=== PATIENT | female | born 1950 | race Caucasian/White ===

== ENCOUNTER → 2017-08-09 | Outpatient (CLI) | payer BC | END | disposition home or self-care (01) | LOC: C.RDSM 10:42 | PROVIDERS: ATTEND Orthopaedic Surgery | DX: M25.551 Pain in right hip (principal) ==

== ENCOUNTER → 2017-10-19 | Outpatient (CLI) | payer BC ==
--- NOTE | 2017-10-19 15:02 | DIAGNOSTIC IMAGING REPORT ---
RIGHT HAND 3 VIEWS CLINICAL HISTORY: Inflammatory polyarthritis. Bilateral hand pain. FINDINGS: 3 views of the right hand are obtained. No prior studies are available for comparison at the time of dictation. The skeletal structures are osteopenic. No fracture is seen. Minimal osteoarthritic change is seen involving the interphalangeal joints, distal greater than and proximal. No erosive disease is identified. The overlying soft tissues are within normal limits. IMPRESSION: Osteopenia and mild arthritic change as above. No acute osseous abnormality is seen. Electronically signed by: Huber Stevenson M.D. 10/19/2017 3:01 PM Dictated Date/Time: 10/19/2017 3:00 PM
--- NOTE | 2017-10-19 15:06 | DIAGNOSTIC IMAGING REPORT ---
L HAND MIN 3 VIEWS ROUTINE CLINICAL HISTORY: Bilateral hand pain. Generalized osteoarthritis. COMPARISON: None FINDINGS: Note is made of a 9 mm lucent expansile lesion within the distal phalanx of the left fifth finger. No fracture or suspicious lesion is identified on this exam and there is joint space narrowing with osteophytosis within multiple articulations of the left hand, most pronounced within the distal interphalangeal joints. Note is made of a well-corticated 8 mm ossicle adjacent to the ulnar styloid. IMPRESSION: 1. No acute fracture. 2. 9 mm expansile lucent lesion within the distal phalanx of the left fifth finger which is likely benign. An enchondroma or bone cyst is favored. 3. Mild to moderate osteoarthritis within multiple articulations of the left hip. 4. No radiographic evidence for erosive/inflammatory arthropathy. 5. 8 mm ossicle adjacent to the ulnar styloid which is chronic and may reflect remote trauma. Electronically signed by: Dean Ragland M.D. 10/19/2017 3:05 PM Dictated Date/Time: 10/19/2017 3:03 PM
[2017-10-19 15:51] LABS: TRANSFERRIN 270 mg/dl (200-360)
== END | disposition home or self-care (01) ==
LOC: C.RAD1850 14:29
PROVIDERS: ATTEND Internal Medicine Rheumatology
DX: K21.9 Gastro-esophageal reflux disease without esophagitis (principal); M06.4 Inflammatory polyarthropathy; M15.9 Polyosteoarthritis, unspecified; M87.059 Idiopathic aseptic necrosis of unspecified femur; Z79.1 Long term (current) use of non-steroidal anti-inflammatories (NSAID)

== ENCOUNTER → 2017-11-07 | Outpatient (CLI) | payer MEDICARE, OTHER ==
[~2017-11-07] MED LIST: ALPR-411 PO; ASPI81TA28 PO; BILB40CA4 PO; CEPH500C PO; CRAN405C3 PO; DICY10CA55 PO; GLC/500 PO; GLUC1CAP35 PO; MULT-506 PO; NXM/40 PO; OMEG10007 PO
--- NOTE | 2017-11-07 14:13 | DIAGNOSTIC IMAGING REPORT ---
PELVIS 1 OR 2 VIEWS CLINICAL HISTORY: Preop for right total hip arthroplasty. COMPARISON STUDY: Pelvis 08/09/2017. FINDINGS: Severe osteoarthritis within the right hip with [id number] articulation, subchondral sclerosis, and subchondral cystic change. This remains unchanged. No fracture or dislocation within the pelvis or hips. There is evidence for a prior left total hip arthroplasty. The hardware appears intact. No abnormal periprosthetic lucency. Pelvic phleboliths are noted. IMPRESSION: 1. Severe osteoarthritis within the right hip, unchanged. 2. Left total hip arthroplasty. No evidence for hardware complication. Electronically signed by: Darren Norman M.D. 11/07/2017 2:11 PM Dictated Date/Time: 11/07/2017 2:07 PM
== END | disposition home or self-care (01) ==
LOC: C.RDSM 14:00
PROVIDERS: ATTEND Physician Assistant
DX: Z01.818 Encounter for other preprocedural examination (principal); M16.11 Unilateral primary osteoarthritis, right hip; Z96.642 Presence of left artificial hip joint

== ENCOUNTER 2025-04-24 10:58 | Inpatient (IN) ==
--- NOTE | 2025-04-15 10:13 | Anesthesiology Consultation ---
Date of Service April 15, 2025 Assessment & Plan (1) Encounter for pre-operative examination: - Check BSG DOS - Infectious disease screening: Per assessment on 04/15/25- No known recent infectious disease contacts or current infectious disease symptoms. - Preop testing: Preop EKG done 04/11/25 notes SR with PACs in pattern of bigeminy; 78bpm. Per PAT RN phone interview 04/15/25, no cardiopulmonary limiting complaints and no SOB with flight of stairs. Reviewed with Dr. Pierda; no further cardiac evaluation and/or testing needed prior to given surgery from his perspective. - Acceptable risk for given surgery pending evaluation DOS. Chart Review Chart Review: Patient NOT seen in Pre Admission Testing History Surgery Operation Date: 04/24/25 12:20 Proposed Procedures p Laparoscopic Sigmoid Colon Resection, Possible Open - Mark Machuca, Height/Weight Height: 5 ft 6 in Weight: 70.307 kg Allergies Allergy/AdvReac Type Severity Reaction Status Date / Time adhesive tape Allergy Severe Severe Verified 04/15/25 10:10 skin rash, blisters nitrofurantoin Allergy Severe Bilateral Verified 04/15/25 10:10 [From Macrobid] hand swelling diltiazem AdvReac Severe Severe Verified 04/15/25 10:10 lower extremity edema lemus pepper AdvReac Intermediate Gastrointestinal Verified 04/15/25 09:29 Upset ciprofloxacin AdvReac Intermediate Ligament Verified 04/15/25 10:10 damage Medications Home Medications Medication Instructions Recorded Confirmed Last Taken esomeprazole magnesium 40 mg 40 mg PO QAM Heartburn 01/09/19 04/15/25 08/31/23 07:00 capsule,delayed release (Nexium) dapagliflozin propanediol 5 mg 10 mg PO HS 08/16/23 04/15/25 08/29/23 tablet (Farxiga) amoxicillin 500 mg tablet 2,000 mg PO UD PRN dental appts 08/21/23 04/15/25 07/27/23 dicyclomine 10 mg capsule 10 mg PO BID PRN 08/21/23 04/15/25 08/03/23 diarrhea/abdominal pain ibuprofen 200 mg tablet (Advil) 400 mg PO Q6H PRN Pain 08/21/23 04/15/25 08/25/23 aspirin 81 mg tablet,delayed 81 mg PO QAM 09/13/24 04/15/25 Unknown release conjugated estrogens 0.625 mg/gram 0.625 mg vaginal 2XWK 09/13/24 04/15/25 Unknown vaginal cream (Premarin) multivitamin 1 tab PO QAM 09/13/24 04/15/25 Unknown red yeast rice 600 mg tablet 600 mg PO QAM 09/13/24 04/15/25 Unknown metformin 500 mg tablet 500 mg PO HS 01/13/25 04/15/25 Unknown metformin 500 mg tablet,extended 1,000 mg PO QAM 01/13/25 04/15/25 Unknown release 24 hr Past Medical History Medical History Cholelithiasis Diabetes mellitus NIDDM GERD without esophagitis History of nephrolithiasis Per remote records, patient denies HLD (hyperlipidemia) Per remote records, patient denies HTN (hypertension) Per remote records, patient denies Neuropathy Osteoarthritis Polyarthralgia Rheumatoid arthritis Per remote records, patient denies Stricture of sigmoid colon Varicose vein of leg right Past Family History Family History Father Diabetes Heart disease Colorectal cancer Mother Heart disease Other No family history of adverse response to anesthesia Past Surgical History Surgical History H/O colonoscopy H/O dilation and curettage 2022 History of endoscopic sinus surgery History of total right hip arthroplasty Hx laparoscopic cholecystectomy (09/01/23) Laparoscopic Cholecystectomy Social History Smoking Status: Former smoker Do You Dip or Chew Tobacco: No Smoking End Date: quit "14 yrs ago" Hx Alcohol Use: Yes alcohol intake frequency: holidays/special occasions only Hx Substance Use: No substance use type: does not use Lab Results Anesthesia Preop Results Results Anesthesia Widget: WBC 12.30 K/ul (4.8-10.8) H 04/11/25 Hgb 12.4 g/dl (12.0-16.0) 04/11/25 Hct 39.2 % (37.0-47.0) 04/11/25 Plt 434 K/uL (130-400) H 04/11/25 Na 136 mmol/L (136-145) 04/11/25 K 4.1 mmol/L (3.5-5.1) 04/11/25 Cl 101 mmol/L (98-107) 04/11/25 CO2 27 mmol/L (21-32) 04/11/25 BUN 11 mg/dl (6-23) 04/11/25 Creat 0.55 mg/dl (0.6-1.2) L 04/11/25 Glucose Level 116 mg/dl (70-99(Fasting)) H 04/11/25 HA1c 7.5 % (4.5-5.6) H 04/11/25 Testing Electrocardiogram Date: 04/11/25 SR with PACs in pattern of bigeminy; "Otherwise normal ECG" Chest X-Ray Date: 04/11/25 FINDINGS: Heart size and pulmonary vasculature are normal. No effusion, consolidation, or pneumothorax. No gross free air seen under the diaphragm. IMPRESSION: No acute findings.
--- NOTE | 2025-04-24 07:12 | History & Physical Report ---
Date of Service April 24, 2025 Assessment & Plan (1) Stricture of sigmoid colon: Plan: I have given her options and discussed risk which include bleeding infection anastomotic leak or stricture injury to other organs such as bladder ureter bowel etc., DVT, PE, IA, CVA etc. Following our discussion I answered all the questions. We will proceed today with laparoscopic sigmoid colectomy. She agrees with the plan. (2) Family history of colon cancer: (3) DM hyperosmolarity type II: History of Present Illness Primary Care Provider: MD Ashlee Mcneill is here today for a laparoscopic sigmoid colectomy for sigmoid stricture. There has been no major changes to her health history since I had seen her last in the office Allergies Allergy/AdvReac Type Severity Reaction Status Date / Time adhesive tape Allergy Severe Severe Verified 04/24/25 10:53 skin rash, blisters nitrofurantoin Allergy Severe Bilateral Verified 04/24/25 10:53 [From Macrobid] hand swelling diltiazem AdvReac Severe Severe Verified 04/24/25 10:53 lower extremity edema lemus pepper AdvReac Intermediate Gastrointestinal Verified 04/24/25 10:53 Upset ciprofloxacin AdvReac Intermediate Ligament Verified 04/24/25 10:53 damage Home Medications Medication Instructions Recorded Confirmed Type esomeprazole magnesium 40 mg 40 mg PO QAM Heartburn 01/09/19 04/24/25 History capsule,delayed release (Nexium) dapagliflozin propanediol 5 mg 10 mg PO HS 08/16/23 04/24/25 History tablet (Farxiga) amoxicillin 500 mg tablet 2,000 mg PO UD PRN dental appts 08/21/23 04/24/25 History dicyclomine 10 mg capsule 10 mg PO BID PRN 08/21/23 04/24/25 History diarrhea/abdominal pain ibuprofen 200 mg tablet (Advil) 400 mg PO Q6H PRN Pain 08/21/23 04/24/25 History aspirin 81 mg tablet,delayed 81 mg PO QAM 09/13/24 04/24/25 History release conjugated estrogens 0.625 mg/gram 0.625 mg vaginal 2XWK 09/13/24 04/24/25 History vaginal cream (Premarin) multivitamin 1 tab PO QAM 09/13/24 04/24/25 History red yeast rice 600 mg tablet 600 mg PO QAM 09/13/24 04/24/25 History metformin 500 mg tablet 500 mg PO HS 01/13/25 04/24/25 History metformin 500 mg tablet,extended 1,000 mg PO QAM 01/13/25 04/24/25 History release 24 hr Past Med/Surg History Problem List Family history of colon cancer Stricture of sigmoid colon Encounter for pre-operative examination JILLIAN (generalized anxiety disorder) Per remoce records, patient denies DM hyperosmolarity type II Medical History Cholelithiasis Diabetes mellitus NIDDM GERD without esophagitis History of nephrolithiasis Per remote records, patient denies HLD (hyperlipidemia) Per remote records, patient denies HTN (hypertension) Per remote records, patient denies Neuropathy Osteoarthritis Polyarthralgia Rheumatoid arthritis Per remote records, patient denies Stricture of sigmoid colon Varicose vein of leg right Surgical History H/O colonoscopy H/O dilation and curettage 2022 History of endoscopic sinus surgery History of total right hip arthroplasty Hx laparoscopic cholecystectomy (09/01/23) Laparoscopic Cholecystectomy Family History Father Diabetes Heart disease Colorectal cancer Mother Heart disease Other No family history of adverse response to anesthesia Social History Smoking Status: Former smoker packs per day: 0.5; Smoking End Date: quit "14 yrs ago"; Second Hand Exposure: No; Do You Dip or Chew Tobacco: No; Tobacco Cessation Education Requested by Patient: No Hx Alcohol Use: Yes Hx Substance Use: No Preferred Language: Belarusian Communication Ability: Effective Visual Impairment: No Limitations Antenna Rigger Required: No Beliefs That Will Affect Care: None marital status: Current Living Situation: Spouse How many Children do You have: 0 Other Information That Helps Us Care for You: No Feels Safe at Home: Yes Safety Concerns: Feels Safe At This Time Diet: diabetic during the past year weight has: remained stable Assistive Devices: Glasses Review of Systems All systems reviewed & are unremarkable except as noted in HPI & below Physical Exam Constitutional: WD/WN, vitals as above no acute distress and not ill appearing Eyes: PERRL, conjunctivae normal, anicteric sclerae EOM intact bilaterally ENMT: external ear and nose normal, oropharynx normal Ears: no hearing impairment Neck: trachea midline, no thyromegaly Respiratory: normal respiratory effort; no respiratory distress and does not use accessory muscles Cardiovascular: Rate/Rhythm: regular rate and regular rhythm Gastrointestinal (Abdomen): normal bowel sounds, soft, nontender, no hepatosplenomegaly Skin: no rashes, warm and dry Psychiatric: Orientation: alert, oriented x 3 and cooperative
[2025-04-24] MEDS: LR 15ML/HR IV SCH (11:30)
[2025-04-24] MEDS: HEPARIN SOD 5,000 UNIT/0.5 ML VIAL SC SCH (11:30)
[2025-04-24] MEDS ORDERED: ATROPINE SULFATE 0.1 MG/ML 10ML SYR IV PRN (11:56)
[2025-04-24] MEDS ORDERED: HYDROmorphone INJ 1 MG/ML SYRINGE IV PRN (11:56)
[2025-04-24] MEDS ORDERED: ONDANSETRON INJ 2 MG/ML 2 ML VIAL IV PRN ×2 (11:56→21:16)
[2025-04-24] MEDS ORDERED: PROMETHAZINE HCL 6.25 MG in SODIUM CHLORIDE 0.9% 50 ML IV PRN (11:56)
[2025-04-24] MEDS ORDERED: PROPOFOL IV EMULSION 10 MG/ML 20 ML VIAL IV ONE (12:04)
[2025-04-24] MEDS ORDERED: ROCURONIUM BROMIDE 10 MG/ML 5 ML VIAL IV ONE ×3 (12:04→16:50)
[2025-04-24] MEDS ORDERED: ONDANSETRON INJ 2 MG/ML 2 ML VIAL ONE (12:04)
[2025-04-24] MEDS ORDERED: MIDAZOLAM HCL 1 MG/ML 2ML VIAL ONE (12:08)
[2025-04-24] MEDS ORDERED: PHENYLEPHRINE 100MCG/ML 5ML SYR ONE (14:49)
[2025-04-24] MEDS ORDERED: METHYLENE BLUE 0.5% 10 ML VIAL ONE (15:38)
[2025-04-24] MEDS ORDERED: ALBUMIN HUMAN 5% 12.5 GM/250 ML VIAL IV ONE (16:49)
[2025-04-24] MEDS ORDERED: ceFAZolin 330 MG/ML 1 GM VIAL ONE (17:30)
[2025-04-24] MEDS ORDERED: HYDROmorphone INJ 2 MG/ML SYR/VIAL ONE (17:58)
--- NOTE | 2025-04-24 18:12 | Operative Report ---
PG Post Operative Report Pre & Post Diagnosis Operation Date: 04/24/25 12:05 Pre-Op Diagnosis: bladder laceration Post-Op Diagnosis: bladder laceration I identified the patient and participated in the time-out.: No Procedure Operation Date: 04/24/25 12:05 Actual Procedures p Laparoscopic, converted to open Sigmoid Colon Resection(Not Applicable) - Mark Machuca, DO s Cystoscopy, ureteral catheterization, repair of bladder laceration(Not Applicable) - Suleman Ma MD Surgeon Suleman Ma MD Parachute/Combatant Diver Officer none Estimated Blood Loss 0 Findings See Below Sigmoid colon fused to the dome and posterior wall of the bladder. These were dissected apart sharply. Cystotomy had been made near the dome of the bladder, this was inspected and repaired in the 2 layer closure. Cystoscopy identified efflux from bilateral ureters, left ureteral catheter was left in place to allow tactile sensation for the duration of the procedure, will be removed at conclusion of procedure. Vazquez catheter will remain in place. Specimens None Drains 5 Guyanese open-ended catheter in the left ureter, plan to remove at the end of surgery 16 Guyanese Vazquez catheter per urethra, 10 cc in balloon Anesthesia Type General Complications none Disposition Accompanied Patient To Recovery: No Indications This is a 74-year-old female who was brought to the OR by general surgery for sigmoid colon resection. Intraoperatively she was found to have significant adhesion of her sigmoid colon to the dome and posterior wall of the bladder. During dissection a cystotomy was created. Urology was consulted intraoperatively for assistance with dissection and repair of bladder laceration. Description of Procedure Upon entry to the OR, patient was already under anesthesia with an abdominal incision and the lower abdomen and pelvis exposed. On inspection there appeared to be a 2 to 3 cm cystotomy near the dome of the bladder and the sigmoid colon was significantly firm and fused to the dome and posterior wall of the bladder. There was no obvious plane for dissection between these 2 structures. There was a Vazquez catheter in the bladder and the balloon could be palpated near the bladder neck. Bladder seemed to be fairly capacious. Prior to repairing the cystotomy, we elected to complete the dissection of the sigmoid colon away from the bladder. While palpating the inside of the bladder through the cystotomy to determine the approximate edge, we used blunt and sharp dissection to free up the colon from the bladder. At 1 point dissection entered into the sigmoid that was planning to be resected, which provided a useful landmark. The line of dissection was then adjusted to free up the remaining colon off of the bladder. Once the colon was freed up, I turned my attention to the bladder laceration. The mucosal edges were identified and inspected. These appeared to be healthy edges of tissue. The mucosal layer was reapproximated using 4-0 Vicryl in a running suture. I then closed the muscularis layer using a running 3-0 Vicryl suture. The bladder was leak tested with 120 mL of normal saline and no leaks were identified. Cystoscopy was then performed to inspect the anterior of the bladder and interrogate the ureters. The ureteral orifices were somewhat further at the posterior wall of the bladder than expected, but there was drainage of urine from both sides. Due to denser scar tissue on the left side in the pelvis, Dr. Machuca requested that I leave a 5 Guyanese open-ended catheter to provide a palpable landmark for his dissection. 5 Guyanese open-ended catheter was advanced with minimal resistance, approximately 25 cm up toward the left kidney. Leaving the open-ended catheter in place, the cystoscope was then withdrawn. A 16 Guyanese Vazquez catheter was placed per urethra and the balloon inflated with 10 mL of normal saline. 5 Guyanese open-ended catheter was threaded by the adapter into the Vazquez bag as well and secured using a 0 silk suture to the catheter. At this point I concluded my portion of the case and left Dr. Machuca to complete the colon resection. We will plan to maintain the Vazquez catheter for approximately 2 weeks. The 5 Guyanese open-ended catheter can be removed at the end of surgery this evening. I attest to the content of the Intraoperative Record and any orders documented therein. Any exceptions are noted below.
[2025-04-24] MEDS ORDERED: SUGAMMADEX SODIUM 200 MG/2 ML VIAL IV ONE (19:21)
[2025-04-24] MEDS: BUPIVACAINE/EPINEPHRINE 0.5% MPF 1:200,000 30 ML VIAL ONE (19:37)
--- NOTE | 2025-04-24 20:07 | Operative Report ---
PG Post Operative Report Pre & Post Diagnosis Operation Date: 04/24/25 12:05 Pre-Op Diagnosis: Stricture of Sigmoid Colon Post-Op Diagnosis: Stricture of Sigmoid Colon; badder laceration I identified the patient and participated in the time-out.: No Procedure Operation Date: 04/24/25 12:05 Actual Procedures p Laparoscopic, converted to open Low Anterior Resection(Not Applicable) - ; please use difficulty modifierMatthedarci Machuca DO s Cystoscopy, ureteral catheterization, repair of bladder laceration(Not Applicable) - Suleman Ma MD Surgeon Mark Machuca DO intra-op consult/urology: International Travel Consultant Betsy Tim pa-c; Crescencio Aggarwal pa-c Estimated Blood Loss 200 Findings See Below Specimens rectosigmoid colon Anesthesia Type General Complications none bladder laceration Disposition Accompanied Patient To Recovery: No Description of Procedure After informed consent was obtained the patient was taken to the operating room and placed in supine position. After successful intubation the patient was placed in a low lithotomy position. A Vazquez catheter was placed sterilely. The abdomen and perineum were then sterilely prepped and draped in usual fashion. I began with a supraumbilical incision. I carried this down through the soft tissue using cautery. Anterior fascia was opened using cautery and two #0 Vicryl stay sutures were placed. Blunt finger penetration was performed. A 12 mm Hayes trocar was placed and the abdomen was insufflated to 18 mmHg. The laparoscope was inserted and the abdomen examined 360 degrees. A right lower quadrant 12 mm port and a right mid abdominal 5 mm port were placed under direct vision. The patient was placed in a Trendelenburg position. I began by examining the sigmoid colon. Almost immediately I realized I would have to convert to an open procedure. The area of abnormal rectosigmoid was extremely adhesed and completely to the left pelvic sidewall and eventually we would come to realize the urinary bladder. There is no way to even remotely manipulate the disease portion of colon. At this point we removed all the trocars and desufflated the abdomen. I made a midline incision from above the umbilicus down the pubic symphysis. Once in the abdomen we did use a Bookwalter retractor to help with exposure. I began by trying to take down the white line of Toldt on the left colon. I tried to use blunt finger fractionation but this was simply impossible. The colon itself was extremely hard and non-malleable. I had to use very hard finger fractionation as well as some sharp lysis to get the colon off of the left abdominal and pelvic sidewall. This was a very tedious portion of the surgery. The surgery from start to finish was extremely difficult anatomically. At this point I decided to transect the left colon proximal to the stricture using a GAGAN purple cartridge linear stapler. This allowed me to use the LigaSure device to come down along the mesentery of the diseased bowel. Again we used tedious primarily finger fractionation with small amounts of sharp lysis. As I came over the pelvic brim and tried to free the colon from surrounding tissue my finger inadvertently caused an injury to the urinary bladder. Essentially the colon had fistulized to the bladder and the plane was unrecognizable. You could not differentiate bladder from sigmoid colon. At this point I called Dr. Ma into the room. He graciously came in and we had to sharply divide the urinary bladder from the sigmoid colon. Again this took quite some time. Please see his dictation regarding this part of the procedure as well as the repair of the bladder ,cystoscopy and left ureter stent placement. Once his portion of the procedure was completed we then continued to finger fractionate colon down along the left side. I was able to more aggressively do this now that we had a ureteral stent in place. At 1 point I scrubbed out of the case and performed a sigmoidoscopy. I ensured that the colonoscope passed up to the area of inflamed bowel and that there was not a second distal stricture. We were able to identify the tattoo rebekah placed previously by gastroenterology. Once I had this freed up it was going to be clear that we were not going to be able to staple off the rectosigmoid as it was too thick and our angle was too poor. Therefore I placed a bowel clamp on the rectum as well as the sigmoid and sharply divided the colon distal to the stricture. This was sent to pathology. Once we did this this allowed us to mobilize the mesentery of the rectosigmoid and free up the peritoneal reflection. Once we did that I was then able to safely use a GAGAN black cartridge stapler to transect the rectosigmoid and passed this additional portion of colon to pathology as well. Throughout the procedure we did change our gloves intermittently as well as our gowns. There was never any spillage. Next I freed up the left colon up to the splenic flexure. Next we opened the proximal stapled end of the colon. I used 2-0 silk to hand sew a pursestring. We then used the sizers to estimate the lumen size to be 28 mm. The anvil of a 28 mm stapler was placed and the pursestring used to secure it. After freeing up the splenic flexure the anvil laid nicely over the pelvic brim. Next we brought in the handle of the EEA stapler. We brought out the spike anterior to the staple line. We connected the anvil to the handle secured them together and fired it creating a circular anastomosis. Next I thoroughly irrigated the pelvis. The anastomosis looked good and was nonischemic. I bowel clamped the left colon and submerged the anastomosis in water. We used a rigid sigmoidoscope to inflate the anastomosis and there was no evidence of any anastomotic leak. We performed this maneuver twice with the same result. There was adequate hemostasis. We thoroughly irrigated the entire abdomen. 10 flat Leland-Melendez drain was placed into the pelvis and brought out through one of the right lower quadrant trocar sites. It was secured to the skin using 2-0 silk. The fascia was closed using 0 PDS in running fashion. Soft tissue was irrigated and skin was closed over skin delma. A silver dressing was applied as well as an abdominal binder. The ureteral stent was removed but the Vazquez was left in place. The patient was awakened extubated and transferred to recovery in stable condition. My physician certified anesthesiologist assistant was present through the entire case. My second physician certified anesthesiologist assistant also scrubbed in for the second half of the case. They were instrumental in all aspects including accessing the abdomen, exposure throughout the procedure, assisting with the anastomosis, assisting Dr. Ma with his portion of the procedure, wound closure and dressing placement. Again this was extremely difficult from being the end please use modifier 22. I attest to the content of the Intraoperative Record and any orders documented therein. Any exceptions are noted below.
--- NOTE | 2025-04-24 20:34 | Anesthesiology Progress Note ---
Date of Service April 24, 2025 Anesthesia Post Procedure Vital Signs Vital Signs: Temp Pulse Pulse Resp BP Pulse Ox O2 Del Method 04/24/25 20:25 98 H 18 138/75 95 Nasal Cannula 04/24/25 20:15 101 H 14 133/75 97 Nasal Cannula 04/24/25 20:05 97 H 18 131/71 98 Oxymask 04/24/25 19:54 36 C L 100 H 12 144/71 H 98 Oxymask 04/24/25 10:50 36.6 C 78 20 139/71 97 Room Air O2 Flow Rate 04/24/25 20:25 2 04/24/25 20:15 2 04/24/25 20:05 3 04/24/25 19:54 6 04/24/25 10:50 Transfer of Care Handoff Completed per policy Notes Mental Status: alert / awake / arousable Patient Amnestic to Procedure: Yes Nausea / Vomiting: adequately controlled Pain: adequately controlled Airway Patency, RR, SpO2: stable & adequate BP & HR: stable & adequate Hydration State: stable & adequate Anesthetic Complications: no major complications apparent
[2025-04-24] MEDS: PIPERACILLIN/TAZOBACTAM 4.5 GM/100 ML BAG IV ONE (21:37)
[2025-04-24] MEDS: SODIUM CHLORIDE 0.9% 1,000 ML IV SCH (21:38)
[2025-04-24] MEDS: HYDROmorphone INJ 0.5 MG/0.5 ML SYR IV PRN (22:01)
--- NOTE | 2025-04-24 22:44 | Hospitalist Consultation ---
Date of Consultation April 24, 2025 Assessment & Plan (1) T2DM (type 2 diabetes mellitus): (2) Stricture of sigmoid colon: (3) HLD (hyperlipidemia): (4) Rheumatoid arthritis: (5) Polyarthralgia: Plan #T2DM - Seen post-op, medically stable, pain control medications per primary team - Last HgbA1C 04/11: 7.5 - POC glucose from today (04/24): 229 - Hold home medications Farxiga and metformin - Start sliding scale insulin - Goal glucose 110-150s, CF 35, CR 11 - 6 U BID Lantus - ACHS glucose checks #GERD - Started IV Protonix 40mg daily - Switch to home oral nexium upon discharge #Polyarthralgias - Monitor symptoms and address as needed #HLD - Resume red yeast rice upon discharge Supervising Physician Co-Signing Physician Notes Attending addendum: I have physically seen this patient, have supervised the medical residents activities, and agree with the H&P unless as otherwise noted. Assessment and Plan: The patient is a 74-year-old female with a past medical history including diabetes mellitus type II, JILLIAN, and GERD without esophagitis. She underwent laparoscopic surgery converted to open low anterior resection of sigmoid stricture, and cystoscopy ureteral catheterization and repair of bladder laceration earlier in the day today on 04/24/2025. Seen postoperatively she is medically stable Pain and perisurgery medications per primary team. Reason for consult: Postoperative medical management, attention diabetes mellitus. Diabetes mellitus type 2- Last hemoglobin A1c on 04/11 was 7.5 POC glucose today was 229 Hold metformin and Farxiga Lantus 6 units SQ twice daily Sliding scale insulin coverage as noted GERD without esophagitis- On Nexium in the outpatient setting Place on pantoprazole 40 mg IV daily, while in hospital, then resume Nexium upon discharge Remaining orders and notations as noted [facility] Hospitalist service will follow along during hospital stay History of Present Illness Reason for Consultation: Diabetes management Requesting Physician: Zbigniew Aggarwal Attending Physician: Mark Machuca, History of Present Illness 74 yo F s/p sigmoid colectomy for sigmoid structure today (04/24) seen today in consult regarding diabetes management. Patient takes Metformin 1000mg BID as well as Farxiga 10mg in PM. Patient reports compliance with medications most of the time. She has not taken her Farxiga past 5 days due to surgical procedure. She checks her blood sugars at home first thing in the morning and they range ar ound 130s. Denies blurry vision, CP, N/V, SOB, LH. Reports soreness around surgical site. No acute concerns. Allergies Allergy/AdvReac Type Severity Reaction Status Date / Time adhesive tape Allergy Severe Severe Verified 04/24/25 10:53 skin rash, blisters nitrofurantoin Allergy Severe Bilateral Verified 04/24/25 10:53 [From Macrobid] hand swelling diltiazem AdvReac Severe Severe Verified 04/24/25 10:53 lower extremity edema lemus pepper AdvReac Intermediate Gastrointestinal Verified 04/24/25 10:53 Upset ciprofloxacin AdvReac Intermediate Ligament Verified 04/24/25 10:53 damage Home Medications Medication Instructions Recorded Confirmed Type esomeprazole magnesium 40 mg 40 mg PO QAM Heartburn 01/09/19 04/24/25 History capsule,delayed release (Nexium) dapagliflozin propanediol 5 mg 10 mg PO HS 08/16/23 04/24/25 History tablet (Farxiga) amoxicillin 500 mg tablet 2,000 mg PO UD PRN dental appts 08/21/23 04/24/25 History dicyclomine 10 mg capsule 10 mg PO BID PRN 08/21/23 04/24/25 History diarrhea/abdominal pain ibuprofen 200 mg tablet (Advil) 400 mg PO Q6H PRN Pain 08/21/23 04/24/25 History aspirin 81 mg tablet,delayed 81 mg PO QAM 09/13/24 04/24/25 History release conjugated estrogens 0.625 mg/gram 0.625 mg vaginal 2XWK 09/13/24 04/24/25 History vaginal cream (Premarin) multivitamin 1 tab PO QAM 09/13/24 04/24/25 History red yeast rice 600 mg tablet 600 mg PO QAM 09/13/24 04/24/25 History metformin 500 mg tablet 500 mg PO HS 01/13/25 04/24/25 History metformin 500 mg tablet,extended 1,000 mg PO QAM 01/13/25 04/24/25 History release 24 hr Patient History Medical History Cholelithiasis Diabetes mellitus NIDDM GERD without esophagitis History of nephrolithiasis Per remote records, patient denies HLD (hyperlipidemia) Per remote records, patient denies HTN (hypertension) Per remote records, patient denies Neuropathy Osteoarthritis Polyarthralgia Rheumatoid arthritis Per remote records, patient denies Stricture of sigmoid colon Varicose vein of leg right Surgical History H/O colonoscopy H/O dilation and curettage 2022 History of endoscopic sinus surgery History of total right hip arthroplasty Hx laparoscopic cholecystectomy (09/01/23) Laparoscopic Cholecystectomy Family History Father Diabetes Heart disease Colorectal cancer Mother Heart disease Other No family history of adverse response to anesthesia Social History Smoking Status: Former smoker packs per day: 0.5; Smoking End Date: quit "14 yrs ago"; Second Hand Exposure: No; Do You Dip or Chew Tobacco: No; Tobacco Cessation Education Requested by Patient: No Hx Alcohol Use: Yes Hx Substance Use: No Preferred Language: Faroese Communication Ability: Effective Visual Impairment: No Limitations Cost Control Analyst Required: No Beliefs That Will Affect Care: None marital status: Current Living Situation: Spouse How many Children do You have: 0 Other Information That Helps Us Care for You: No Feels Safe at Home: Yes Safety Concerns: Feels Safe At This Time Diet: diabetic during the past year weight has: remained stable Assistive Devices: Glasses Review of Systems Review of Systems: All systems reviewed & are unremarkable except as noted in HPI & below Physical Exam Constitutional: WD/WN, vitals as above Respiratory: normal respiratory effort, lungs clear to auscultation Cardiovascular: RRR, no murmur, no edema Gastrointestinal (Abdomen): normal bowel sounds, soft, nontender, no hepatosplenomegaly Skin: no rashes, warm and dry Psychiatric: A+Ox3, euthymic affect Results & Data Results & Data Vital Signs (Past 12 Hours) Vital Signs Temp Pulse Pulse Resp BP Pulse Ox O2 Del Method 04/24/25 21:30 36.4 C L 90 16 126/75 98 Nasal Cannula 04/24/25 21:00 36.4 C L 91 H 16 133/79 97 Nasal Cannula 04/24/25 20:35 36.6 C 97 H 16 145/78 H 98 Nasal Cannula 04/24/25 20:25 98 H 18 138/75 95 Nasal Cannula 04/24/25 20:15 101 H 14 133/75 97 Nasal Cannula 04/24/25 20:05 97 H 18 131/71 98 Oxymask 04/24/25 19:54 36 C L 100 H 12 144/71 H 98 Oxymask 04/24/25 10:50 36.6 C 78 20 139/71 97 Room Air O2 Flow Rate 04/24/25 21:30 2 04/24/25 21:00 2 04/24/25 20:35 2 04/24/25 20:25 2 04/24/25 20:15 2 04/24/25 20:05 3 04/24/25 19:54 6 04/24/25 10:50 Resident Activity Tracking Resident Involvement: Resident Care Provided Care Provided: Adult Hospital Medicine
[2025-04-24] MEDS ORDERED: GLUCOSE 40% GEL 15 GM TUBE PO PRN (23:00)
[2025-04-24] MEDS ORDERED: GLUCAGON FOR INJ 1 MG VIAL SQ PRN (23:00)
[2025-04-24] MEDS ORDERED: CARBOHYDRATES FOR HYPOGLYCEMIA PO PRN (23:00)
[2025-04-24] MEDS ORDERED: GLUCOSE 10 TAB/TUBE PO PRN (23:00)
[2025-04-25] MEDS: PIPERACILLIN/TAZOBACTAM 4.5 GM/100 ML BAG IV SCH (02:06)
--- NOTE | 2025-04-25 04:05 | Billing Data ---
Date of Service April 25, 2025 Coding Level of Care Code 76608 IN/OBS CONSULT LVL 3,45M
[2025-04-25 06:25] LABS: Hematocrit (blood only) 29.1 % (37.0-47.0); Hemoglobin 9.4 g/dl (12.0-16.0); Mean Corpuscular Hemoglobin 25.6 pg (25.0-34.0); Mean Corpuscular Volume 79.3 fL (80.0-100.0); Platelet Count 315 K/uL (130-400); RDW Standard Deviation 41.2 fL (36.4-46.3); Red Blood Count 3.67 M/uL (4.20-5.40); White Blood Count 17.39 K/ul (4.8-10.8)
[2025-04-25 06:46] LABS: Immature Granulocytes # (auto) 0.07 K/uL (0.01-0.20); Immature Granulocytes % (auto) 0.4 %
[2025-04-25 06:51] LABS: Anion Gap 11.0 (3-11); Blood Urea Nitrogen 9.0 mg/dl (6-23); Calcium 7.8 mg/dl (8.6-10.3); Carbon Dioxide 22.0 mmol/L (21-32); Chloride 106.0 mmol/L (98-107); Creatinine Clr Calc Pharmacy 61.8 ml/min; Glucose 244.0 mg/dl (70-99(Fasting)); Potassium 4.0 mmol/L (3.5-5.1); Sodium 139.0 mmol/L (136-145)
--- NOTE | 2025-04-25 07:24 | Hospitalist Progress Note ---
Date of Service April 25, 2025 Assessment & Plan (1) T2DM (type 2 diabetes mellitus): (2) Stricture of sigmoid colon: (3) HLD (hyperlipidemia): (4) Rheumatoid arthritis: (5) Polyarthralgia: Plan Ashlee is a 74-year-old female with a past medical history including diabetes mellitus type II, JILLIAN, and GERD without esophagitis. She underwent laparoscopic surgery converted to open low anterior resection of sigmoid stricture, and cystoscopy ureteral catheterization and repair of bladder laceration on 04/24/2025. Primary team was consulted on medical optimization. Patient seems medically optimized. Need of low flow oxygen likely 2/2 to long exposure of anesthetic agent and prolonged intubation during procedure. Anticipate improvement with use of regular incentive spirometer and ambulation. S/P open anterior resection of sigmoid stricture: - Pain optimized. - vitals stable - DVT prophylaxis: SCDs on. - Low flow O2 likely post-op atelactasis Continue Incentive Spirometry. Adequate pain control. Labs: CBC, CMP, lipid profile tomorrow. #T2DM - Seen post-op, medically stable - Last HgbA1C 04/11: 7.5 - POC glucose from today (04/25): 244 - Hold home medications Farxiga and metformin - Lantus 6U SC BID. - ACHS/ SS Insulin Goal glucose 110-150s, CF 35, CR 11. #GERD - IV Protonix 40mg daily- can change to oral once PO. - Switch to home oral nexium upon discharge #Polyarthralgias - Monitor symptoms and address as needed #HLD - Resume red yeast rice upon discharge Admission and Anticipated Discharge Date Admission Date: April 24, 2025 Supervising Physician Co-Signing Physician Notes Attending attestation Pt seen and examined in concert with Dr. Hernandez. In agreement with the documented findings as noted in the resident documentation with any exceptions or additions as noted here. Resting in bed, pain well controlled at time of examination without acute complaint. VS as noted. On examination, S1/S2 nl RRR no MCG. CTAB. Abd NT/ND BS+ve Anemia and leukocytosis, likely perioperative - repeat CBC in AM DMII - glycemic consult - continue monitoring and SSI/glargine. Holding Farxiga and metformin during admit. Else see resident documentation as noted. Subjective Patient S/P Sigmoidectomy POD 1, remains stable. She endorsed some discomfort on incision site, however pain was not severe. No Chest pain, SOB, fever postop. She is a patient of Dr. Seaman in outpatient in [facility] , has been following her regularly. Pt was consulted by primary surgery team for optimizing medical condition. Patient had a long procedure yesterday and has been under low flow oxygen since then. No underlying lung disease or home use of oxygen that she says. Review of Systems Review of Systems: Per hPI Physical Exam Physical Exam: Constitutional: Well appearing, No acute distress, Pale looking HEENT: Atraumatic, Normocephalic, No conjunctival injection CVS: S1 S2 no murmur, Regular Rhythm, no LE edema Respiratory: BL mild decreased air entry in bases, No rhonchi, wheezes, or crackles. No increased work of breathing GI: Non distended, bandage intact, No soakage. MSK: No gross deformities noted Skin: Warm, Dry, No rashes Neuro: Alert, Oriented to TPP, No Focal deficit Psych: Mood and Affect congruent, Cooperative on exam Results & Data Results & Data Vital Signs (Past 12 Hours) Vital Signs Temp Pulse Pulse Resp BP BP Pulse Ox 04/25/25 03:30 36.5 C 102 H 16 126/71 98 04/24/25 23:30 36.5 C 101 H 18 117/74 97 04/24/25 22:30 36 C L 93 H 16 133/83 96 04/24/25 21:30 36.4 C L 90 16 126/75 98 04/24/25 21:00 04/24/25 21:00 36.4 C L 91 H 16 133/79 97 04/24/25 20:35 36.6 C 97 H 16 145/78 H 98 04/24/25 20:25 98 H 18 138/75 95 04/24/25 20:15 101 H 14 133/75 97 04/24/25 20:05 97 H 18 131/71 98 04/24/25 19:54 36 C L 100 H 12 144/71 H 98 O2 Del Method O2 Flow Rate 04/25/25 03:30 Nasal Cannula 2 04/24/25 23:30 Nasal Cannula 2 04/24/25 22:30 Nasal Cannula 2 04/24/25 21:30 Nasal Cannula 2 04/24/25 21:00 Nasal Cannula 2 04/24/25 21:00 Nasal Cannula 2 04/24/25 20:35 Nasal Cannula 2 04/24/25 20:25 Nasal Cannula 2 04/24/25 20:15 Nasal Cannula 2 04/24/25 20:05 Oxymask 3 04/24/25 19:54 Oxymask 6
[2025-04-25] MEDS: ACETAMINOPHEN 1,000 MG/100 ML VIAL IV PRN (07:49)
[2025-04-25] MEDS: INSULIN ASPART PER UNIT CHARGE SC SCH (08:02)
--- NOTE | 2025-04-25 08:43 | Surgery Progress Note ---
Date of Service April 25, 2025 Assessment & Plan (1) Stricture of sigmoid colon: Plan Patient seems to be recovering well from surgery yesterday, pain is well- controlled on current pain medication regimen. Patient has been mildly tachycardic and has had borderline low urine output with dark urine, suspect that she is dehydrated. We will give her 1 L bolus now and continue to monitor. Will also allow for sips of clears while awaiting return of bowel function. We will consult hospitalist due to her hyperglycemia and chronic medical conditions, appreciate their assistance in medical management. Also appreciate urology's assistance intraoperatively, keep Hernandez for at least 2 weeks unless directed differently by their team. Continue to monitor JOCELYN drain output. Activity as tolerated, encourage out of bed and ambulation, incentive spirometry. Will plan to start Lovenox tomorrow and will plan to change dressing and reassess midline incision on Monday. Continue Zosyn for diverticulitis and continue to trend white blood cell count and temps. as above. doing better than expected. appears dry will give NSS bolus. medicine consult Dr. Meek covering for weekend. will plan to start lovenox tomorrow keep hernandez/management per urology Admission and Anticipated Discharge Date Admission Date: April 24, 2025 Subjective Patient states that she feels well after surgery yesterday. She admits to some midline abdominal pain, worse with movement, better at rest, well-tolerated with current pain medication regimen. Patient denies any nausea or vomiting, no flatus or bowel movement yet. Patient has remained hemodynamically stable, but mildly tachycardic, borderline Urine output and urine is very dark. Patient did have a elevated white blood cell count this morning at 17.3, likely related to surgery yesterday, afebrile, on Zosyn Physical Exam Physical Exam: Gen: alert and oriented, resting in bed in no acute distress CV: RRR PULM: Nonlabored breathing Abd abd soft, nondistended, minimal generalized tenderness to palpation. D ressing to midline incision is clean dry and intact. JOCELYN drain to right lower quadrant with serosanguineous drainage noted ext: no edema, non-tender, SCDs in place, feet warm and well-perfused Results & Data Vital Signs (Past 12 Hours) Vital Signs Temp Pulse Pulse Resp BP BP Pulse Ox 04/25/25 08:12 36.9 C 96 H 18 109/69 98 04/25/25 07:10 04/25/25 03:30 36.5 C 102 H 16 126/71 98 04/24/25 23:30 36.5 C 101 H 18 117/74 97 04/24/25 22:30 36 C L 93 H 16 133/83 96 04/24/25 21:30 36.4 C L 90 16 126/75 98 04/24/25 21:00 04/24/25 21:00 36.4 C L 91 H 16 133/79 97 04/24/25 20:35 36.6 C 97 H 16 145/78 H 98 O2 Del Method O2 Flow Rate 04/25/25 08:12 Room Air 04/25/25 07:10 Nasal Cannula 2 04/25/25 03:30 Nasal Cannula 2 04/24/25 23:30 Nasal Cannula 2 04/24/25 22:30 Nasal Cannula 2 04/24/25 21:30 Nasal Cannula 2 04/24/25 21:00 Nasal Cannula 2 04/24/25 21:00 Nasal Cannula 2 04/24/25 20:35 Nasal Cannula 2 Results Complete Blood Count Results: RBC 3.67 M/uL (4.20-5.40) L 04/25/25 WBC 17.39 K/ul (4.8-10.8) H 04/25/25 Hgb 9.4 g/dl (12.0-16.0) L 04/25/25 Hct 29.1 % (37.0-47.0) L 04/25/25 Plt Count 315 K/uL (130-400) 04/25/25 Results BMP Results: Sodium 139 mmol/L (136-145) 04/25/25 Potassium 4.0 mmol/L (3.5-5.1) 04/25/25 Chloride 106 mmol/L (98-107) 04/25/25 Carbon Dioxide 22 mmol/L (21-32) 04/25/25 Anion Gap 11 (3-11) 04/25/25 BUN 9 mg/dl (6-23) 04/25/25 Creatinine 0.77 mg/dl (0.6-1.2) 04/25/25 Glucose 244 mg/dl (70-99(Fasting)) H 04/25/25 PG Care Time/CCT Total # of Minutes Spent Total Time Spent with Patient: Total time spent is greater than 50% in coordination of care (as documented) at patient's floor/unit and/or counseling patient: [place] [address] Post Operative Follow-Up Patient Type Established Medical Decision Making Straight Forward Diagnoses Stricture of sigmoid colon K56.699
[2025-04-25] MEDS: LACTATED RINGER'S 1,000 ML IV ONE (09:57)
[2025-04-25] MEDS: PANTOprazole 40 MG/10 ML SYR IV SCH (09:58)
[2025-04-25] MEDS: LANTUS PER UNIT CHARGE SQ SCH (09:58)
--- NOTE | 2025-04-25 11:33 | Urology Progress Note ---
Date of Service April 25, 2025 Assessment & Plan (1) Laceration of bladder: Plan POD #1 s/p Laparoscopic, converted to open Sigmoid Colon Resection with Dr. Machuca and Cystoscopy, ureteral catheterization, repair of bladder laceration with Dr. Ma Afebrile, mildly tachycardic, normotensive Creatinine 0.77 Vazquez intact and draining emily colored urine We will plan to maintain the Vazquez catheter for approximately 2 weeks Will arrange outpatient follow-up with our service for catheter management Urology will sign-off, please recall as needed Admission and Anticipated Discharge Date Admission Date: April 24, 2025 Subjective Patient seen at bedside this morning. Awake and resting in bed on arrival. No acute distress. Vazquez intact and draining concentrated emily urine. Review of Systems Constitutional: as per Subjective / HPI Genitourinary: as per Subjective / HPI Physical Exam Constitutional: no acute distress Respiratory: no respiratory distress and no labored breathing Neurologic: awake Psychiatric: A+Ox3, euthymic affect Genitourinary: Vazquez intact Results & Data Vital Signs (Past 12 Hours) Vital Signs Temp Pulse Pulse Resp BP Pulse Ox O2 Del Method 04/25/25 08:12 36.9 C 96 H 18 109/69 98 Nasal Cannula 04/25/25 07:10 Nasal Cannula 04/25/25 03:30 36.5 C 102 H 16 126/71 98 Nasal Cannula 04/24/25 23:30 36.5 C 101 H 18 117/74 97 Nasal Cannula O2 Flow Rate 04/25/25 08:12 2 04/25/25 07:10 2 04/25/25 03:30 2 04/24/25 23:30 2 PG Care Time/CCT Total # of Minutes Spent Total Time Spent with Patient: Total time spent is greater than 50% in coordination of care (as documented) at patient's floor/unit and/or counseling patient: Coding Level of Care Code 33726 SUB INP/OBS CARE 07/20MIN Diagnoses Laceration of bladder S37.23XA
[2025-04-26 06:34] LABS: Hematocrit (blood only) 25.9 % (37.0-47.0); Hemoglobin 8.2 g/dl (12.0-16.0); Immature Granulocytes # (auto) 0.10 K/uL (0.01-0.20); Immature Granulocytes % (auto) 0.7 %; Mean Corpuscular Hemoglobin 25.9 pg (25.0-34.0); Mean Corpuscular Volume 81.7 fL (80.0-100.0); Platelet Count 297 K/uL (130-400); RDW Standard Deviation 42.5 fL (36.4-46.3); Red Blood Count 3.17 M/uL (4.20-5.40); White Blood Count 15.25 K/ul (4.8-10.8)
--- NOTE | 2025-04-26 07:31 | Hospitalist Progress Note ---
Date of Service April 26, 2025 Assessment & Plan (1) T2DM (type 2 diabetes mellitus): (2) Stricture of sigmoid colon: (3) HLD (hyperlipidemia): (4) Rheumatoid arthritis: (5) Polyarthralgia: Plan Ashlee is a 74-year-old female with a past medical history including diabetes mellitus type II, JILLIAN, and GERD without esophagitis. She underwent laparoscopic surgery converted to open low anterior resection of sigmoid stricture, and cystoscopy ureteral catheterization and repair of bladder laceration on 04/24/2025. Primary team was consulted on medical optimization. Patient seems medically optimized. Need of low flow oxygen likely 2/2 to long exposure of anesthetic agent and prolonged intubation during procedure as well as some fluid on her lungs as of today. Anticipate improvement with use of lasix and regular incentive spirometer and ambulation. S/P open anterior resection of sigmoid stricture: - Pain optimized. - Vitals stable - DVT prophylaxis: SCDs on. Lovenox per Surgical recommendation. Hb looking stable this AM, I think it's reasonable. - Low flow O2 likely post-op . Labs:K :3.2, Hb 8.2 today. Hypoxia( Post ope atelectasis vs mild pul edema) - On O2 2L - 2/2 to long exposure of anesthetic agent and prolonged intubation during procedure as well as some fluid on her lungs as of today. Plan:XR chest : Reviewed image myself, Some fluids in lung bases. Also positive balance of 2400 on I/Os Lasix 20 mg IV stat ordered. Continue Incentive Spirometry. Adequate pain control. O2 as needed. #Hypokalemia - K : 3.2 - Replacement ordered IV KCL. Follow AM lab. Anticipate better PO today and hence will help #Anemia - Hb: 8.2 ---< 9.4----<12 ( pre op) Likely operative blood loss HD stable Transfuse of Hb < 7 #Decreases Urine output - Improving - S/P Bolus 1L yesterday. - UO: 0.5ml/kg/hr , +ve bal: 2400 - Creatinine stable; lasix 20 mg stat given this AM. - Urine clear on exam, Anticipate better PO today, should help. #T2DM - Seen post-op, medically stable( BS 147-152) - BS range below 180 should be fine for perioperative period, to reduce risk of poor healing. - Last HgbA1C 04/11: 7.5 - POC glucose from today (04/25): 244 - Hold home medications Farxiga and metformin - Lantus 6U SC BID. - ACHS/ SS Insulin Goal glucose 110-150s, CF 35, CR 11. #GERD - IV Protonix 40mg daily- can change to oral once PO. - Switch to home oral nexium upon discharge #Polyarthralgias - Monitor symptoms and address as needed #HLD - Resume red yeast rice upon discharge Dispo: Surgery primary, anticipate home once ready for DC. DVT prophylaxis: Recommend Lovenox today. Admission and Anticipated Discharge Date Admission Date: April 24, 2025 Supervising Physician Co-Signing Physician Notes Attending attestation Pt seen and examined in concert with Dr. Hernandez. In agreement with the documented findings as noted in the resident documentation with any exceptions or additions as noted here. Resting in bed, pain well controlled at time of examination without acute complaint. VS as noted. On examination, S1/S2 nl RRR no MCG. CTAB. Abd NT/ND BS+ve Anemia - decreased, likely fluid shift without acute blood loss. Careful monitoring, Transfuse < 7. Leukocytosis - improved, trend CBC daily DMII - glycemic consult - continue monitoring and SSI/glargine. Holding Farxiga and metformin during admit. Else see resident documentation as noted. Subjective [place] is S/P anterior resection of sigmoid with bladder laceration repair, 2nd POD. She was complaining of pain this morning. No fever, SOB, chest pain. She was due for pain Meds and was waiting for nurses. Slept ok last night. started clear. On I/O charting positive balance of 2400 with u/o 0.5 ml/kg /hr. Review of Systems Review of Systems: per HPI Physical Exam Physical Exam: Constitutional: Well appearing, No acute distress but in pain, Pale looking. HEENT: Atraumatic, Normocephalic, No conjunctival injection CVS: S1 S2 no murmur Respiratory: BL decreased air entry,No obvious increased work of breathing. Some soft crepitations on left Lung base compared to right. Upper lungs sounds normal. GI: Soft, Nondistended, bandage with binder, mildly tender. No Obvious BS on my exam. MSK: No gross deformities noted Skin: Warm, Dry, No rashes Neuro: Alert, Oriented to TPP, No Focal deficit Psych: Mood and Affect congruent, Cooperative on exam Results & Data Results & Data Vital Signs (Past 12 Hours) Vital Signs Temp Pulse Resp BP Pulse Ox O2 Del Method O2 Flow Rate 04/26/25 06:56 Nasal Cannula 2 04/25/25 23:00 36.6 C 83 16 103/61 96 Nasal Cannula 2 04/25/25 20:31 Nasal Cannula 2 Resident Activity Tracking Resident Involvement: Resident Care Provided Care Provided: Adult Hospital Medicine
[2025-04-26 08:03] LABS: Alanine Aminotransferase 6.0 U/L (7-52); Albumin Globulin Ratio 1.2 (0.9-2); Albumin Level 2.9 gm/dl (3.4-5.0); Alkaline Phosphatase 55.0 U/L (34-104); Anion Gap 5.0 (3-11); Bilirubin,Total 0.6 mg/dl (0.2-1.0); Blood Urea Nitrogen 6.0 mg/dl (6-23); Calcium 7.6 mg/dl (8.6-10.3); Carbon Dioxide 28.0 mmol/L (21-32); Chloride 107.0 mmol/L (98-107); Cholesterol 62.0 mg/dl (0-200); Creatinine Clr Calc Pharmacy 86.6 ml/min; Globulin 2.4 gm/dl (2.5-4.0); Glucose 145.0 mg/dl (70-99(Fasting)); HDL Cholesterol 26.0 mg/dl; Potassium 3.2 mmol/L (3.5-5.1); Sodium 140.0 mmol/L (136-145); Total Protein 5.3 gm/dl (6.0-8.3); Triglycerides 83.0 mg/dl (0-150)
[2025-04-26] MEDS: POTASSIUM CHLORIDE / WTR 10 MEQ/100 ML PLCT IV SCH (08:18)
--- NOTE | 2025-04-26 08:35 | XRay Report ---
XR chest 1V portable CLINICAL HISTORY: Lung Wet on left COMPARISON STUDY: 09/13/2024 FINDINGS: There is mild cardiomegaly with possible mild pulmonary vascular congestion versus artifact from shallow inspiration. There is interval stranding opacity in the lung bases with partial obscura tion of the diaphragm. No pleural effusion or pneumothorax seen. IMPRESSION: 1. Mild CHF versus artifact from shallow inspiration. 2. Atelectasis versus pneumonia in the lung bases. ACT 112: Negative or not required by law. Electronically signed by: Leo Hartley M.D. 04/26/2025 8:34 AM
--- NOTE | 2025-04-26 10:00 | Surgery Progress Note ---
Date of Service April 26, 2025 Assessment & Plan (1) Stricture of sigmoid colon: Plan: POD #2 H/H down will hold off on lovenox today, SCDs await bowel function ambulate Admission and Anticipated Discharge Date Admission Date: April 24, 2025 Subjective pain controlled no flatus yet drain serosanguinous Review of Systems Constitutional: no fever and no chills Respiratory: no dyspnea Cardiovascular: no chest pain Gastrointestinal: + abdominal pain and + change in bowel h abits; no nausea and no vomiting Genitourinary: hernandez in place Physical Exam Constitutional: WD/WN, vitals as above Eyes: no scleral abnormality Respiratory: normal respiratory effort Cardiovascular: Rate/Rhythm: regular rate and regular rhythm Gastrointestinal (Abdomen): Inspection/Auscultation: abdomen normal to inspection and + abdomen distended; + abnormal bowel sounds Percussion/Palpation: + abdomen tender and abdomen soft incision clean and dry Skin: no rashes, warm and dry Results & Data Vital Signs (Past 12 Hours) Vital Signs Temp Pulse Resp BP Pulse Ox O2 Del Method O2 Flow Rate 04/26/25 08:46 36.8 C 87 16 121/68 96 Room Air 04/26/25 06:56 Nasal Cannula 2 04/25/25 23:00 36.6 C 83 16 103/61 96 Nasal Cannula 2
[2025-04-26] MEDS: FUROSEMIDE INJ 20 MG/2 ML VIAL IV ONE ×2 (11:51→11:52)
[2025-04-27] MEDS: INSULIN ASPART PER UNIT CHARGE SC SCH (00:05)
[2025-04-27 06:29] LABS: Hematocrit (blood only) 26.3 % (37.0-47.0); Hemoglobin 8.3 g/dl (12.0-16.0); Immature Granulocytes # (auto) 0.08 K/uL (0.01-0.20); Immature Granulocytes % (auto) 0.6 %; Mean Corpuscular Hemoglobin 25.9 pg (25.0-34.0); Mean Corpuscular Volume 81.9 fL (80.0-100.0); Platelet Count 307 K/uL (130-400); RDW Standard Deviation 42.6 fL (36.4-46.3); Red Blood Count 3.21 M/uL (4.20-5.40); White Blood Count 13.69 K/ul (4.8-10.8)
[2025-04-27 06:52] LABS: Anion Gap 6.0 (3-11); Blood Urea Nitrogen 4.0 mg/dl (6-23); Calcium 7.7 mg/dl (8.6-10.3); Carbon Dioxide 27.0 mmol/L (21-32); Chloride 109.0 mmol/L (98-107); Creatinine Clr Calc Pharmacy 93.3 ml/min; Glucose 116.0 mg/dl (70-99(Fasting)); Potassium 2.8 mmol/L (3.5-5.1); Sodium 142.0 mmol/L (136-145)
--- NOTE | 2025-04-27 07:21 | Hospitalist Progress Note ---
Date of Service April 27, 2025 Assessment & Plan (1) T2DM (type 2 diabetes mellitus): (2) Stricture of sigmoid colon: (3) HLD (hyperlipidemia): (4) Rheumatoid arthritis: (5) Polyarthralgia: Plan Ashlee is a 74-year-old female with a past medical history including diabetes mellitus type II, JILLIAN, and GERD without esophagitis. She underwent laparoscopic surgery converted to open low anterior resection of sigmoid stricture, and cystoscopy ureteral catheterization and repair of bladder laceration on 04/24/2025. Primary team was consulted on medical optimization. Patient seems medically optimized. Need of low flow oxygen likely 2/2 to long exposure of anesthetic agent and prolonged intubation during procedure as well as some fluid on her lungs, diuresed on 04/26. On night of 04/27 she was feverish and vitals recorded 37.9 temp and HR 119. This morning vitals are reassuring. S/P open anterior resection of sigmoid stricture: - Pain optimized. - Developed mild fever. - DVT prophylaxis: Lovenox , stockings on. - Low flow O2 likely post-op Labs:K :2.8, Hb 8,.3 today. Fever: Mild 37.9 on 04/27 [place]. Was a/w tachy 119/ min D/D: Post operative infections including Pne vs SSI vs Fever d/t anesthetics Plan: Chest XR: No consolidation, improving fluid c/t yesterday Blood CS, Urine CS, CRP ordered today Hypoxia( Post ope atelectasis vs mild pul edema) - On O2 2L - 2/2 to long exposure of anesthetic agent and prolonged intubation during procedure as well as some fluid on her lungs Plan: Repeat XR chest looks reassuring Continue Incentive Spirometry. Adequate pain control. O2 as needed. #Hypokalemia - K : 2.8 - Replacement ordered IV KCL. Follow afternoon lab. #Anemia - Hb: 8.3 ---< 9.4----<12 ( pre op) Likely operative blood loss HD stable Transfuse of Hb < 7 #Decreases Urine output - Improved. 1.9ml/kg/hr in last 24 hours. Stops fluids. #T2DM - Seen post-op, medically stable( BS 147-152) - BS range below 180 should be fine for perioperative period, to reduce risk of poor healing. - Last HgbA1C 04/11: 7.5 - POC glucose from today (04/25): 244 - Hold home medications Farxiga and metformin - Lantus 6U SC BID. - ACHS/ SS Insulin Goal glucose 110-150s, CF 35, CR 11. #GERD - IV Protonix 40mg daily- can change to oral once PO. - Switch to home oral nexium upon discharge #Polyarthralgias - Monitor symptoms and address as needed #HLD - Resume red yeast rice upon discharge Dispo: Surgery primary, anticipate home once ready for DC. DVT prophylaxis: Lovenox. Admission and Anticipated Discharge Date Admission Date: April 24, 2025 Supervising Physician Co-Signing Physician Notes Attending attestation Pt seen and examined in concert with Dr. Hernandez. In agreement with the documented findings as noted in the resident documentation with any exceptions or additions as noted here. Resting in bed, pain well controlled at time of examination without acute complaint. VS as noted. On examination, S1/S2 nl RRR no MCG. CTAB. Abd NT/ND BS+ve Hypokalemia - repleted today. Repeat BMP in PM and daily. Anemia - decreased, likely fluid shift without acute blood loss. Careful monitoring, Transfuse < 7. Leukocytosis - improved, trend CBC daily DMII - glycemic consult - continue monitoring and SSI/glargine. Holding Farxiga and metformin during admit. Else see resident documentation as noted. Subjective Ashlee was mentioning that her belly was burning inside. She shared she felt feverish last night and also has a bout of big cough. She is however not having trouble breathing or chest pain. Actually felt better after big cough. She swallowed the phlegm she says. Not walking, got OOB yesterday she says. Still on foleys. Review of Systems Review of Systems: per HPI Physical Exam Physical Exam: Constitutional: Well appearing, No acute distress but in pain, Pale looking. HEENT: Atraumatic, Normocephalic, No conjunctival injection CVS: S1 S2 no murmur Respiratory: BL decreased air entry,No obvious increased work of breathing. Occasional soft crepitations on left lung. GI: Midline anterior abdominal wall ?umbilical hernia noted, Mildly distended abdomen, bandage with binder, mildly tender. No rebound tendernes. BS noted on my exam. MSK: No gross deformities noted Skin: Warm, Dry, No rashes Neuro: Alert, Oriented to TPP, No Focal deficit Psych: Mood and Affect congruent, Cooperative on exam Results & Data Results & Data Vital Signs (Past 12 Hours) Vital Signs Temp Pulse Resp BP Pulse Ox O2 Del Method O2 Flow Rate 04/27/25 00:01 94 Nasal Cannula 2 04/27/25 00:01 37.9 C H 119 H 16 136/72 97 Room Air 04/26/25 20:30 Room Air
[2025-04-27] MEDS: POTASSIUM CHLORIDE / WTR 10 MEQ/100 ML PLCT IV SCH ×2 (07:41→16:11)
[2025-04-27] MEDS: HYDROmorphone INJ 1 MG/ML SYRINGE IV STA (07:41)
--- NOTE | 2025-04-27 08:01 | XRay Report ---
XR chest 1V portable CLINICAL HISTORY: r/o pneumonia s/p diuresis COMPARISON STUDY: 04/26/2025 FINDINGS: Heart size and pulmonary vasculature are normal. There is mild stranding opacity in the yvonne g bases, improved. No other consolidation or pleural effusion. No pneumothorax. IMPRESSION: Mild stranding opacity in the lung bases, improved ACT 112: Negative or not required by law. Electronically signed by: Leo Hartley M.D. 04/27/2025 7:59 AM
[2025-04-27] MEDS: ENOXAPARIN INJ 40 MG/0.4 ML SYR SQ SCH (08:52)
--- NOTE | 2025-04-27 10:49 | Surgery Progress Note ---
Date of Service April 27, 2025 Assessment & Plan (1) Stricture of sigmoid colon: Plan: some progress sips/chips till flatus ambulate on lovenox H/H stabilized Admission and Anticipated Discharge Date Admission Date: April 24, 2025 Subjective feels some gurgling but no flatus yet pain controlled ambulating OK Review of Systems Constitutional: no fever and no chills Respiratory: no dyspnea Cardiovascular: no chest pain Gastrointestinal: + abdominal pain and + change in bowel h abits; no nausea and no vomiting Neurologic: no localized weakness Psychiatric: no behavioral changes Physical Exam Constitutional: WD/WN, vitals as above Respiratory: normal respiratory effort Cardiovascular: Rate/Rhythm: regular rate and regular rhythm Gastrointestinal (Abdomen): Inspection/Auscultation: abdomen normal to inspection, + abdomen distended and + hypoactive bowel sounds Perc ussion/Palpation: + abdomen tender and abdomen soft; no guarding Musculoskeletal: Head/Neck/Chest: normocephalic and head atraumatic Results & Data Vital Signs (Past 12 Hours) Vital Signs Temp Pulse Pulse Resp BP BP Pulse Ox 04/27/25 07:50 36.8 C 80 14 123/71 98 04/27/25 00:01 94 04/27/25 00:01 37.9 C H 119 H 16 136/72 97 O2 Del Method O2 Flow Rate 04/27/25 07:50 Nasal Cannula 2 04/27/25 00:01 Nasal Cannula 2 04/27/25 00:01 Room Air
[2025-04-27 14:32] LABS: Anion Gap 5.0 (3-11); Blood Urea Nitrogen 4.0 mg/dl (6-23); Calcium 7.5 mg/dl (8.6-10.3); Carbon Dioxide 25.0 mmol/L (21-32); Chloride 108.0 mmol/L (98-107); Creatinine Clr Calc Pharmacy 108.2 ml/min; Glucose 98.0 mg/dl (70-99(Fasting)); Potassium 3.2 mmol/L (3.5-5.1); Sodium 138.0 mmol/L (136-145)
--- NOTE | 2025-04-27 19:08 | Ultrasound Report ---
EXAM: US Soft Tissues of the Neck INDICATION: Evaluate for abscess. TECHNIQUE: Sonographic images labeled left lateral neck superior point of interest, left parotid and left IJ provided. COMPARISON: No relevant prior studies available. FINDINGS: Soft tissues: Normal sonographic appearance of the left parotid gland. Vasculature: No fluid collections. No solid mass. No abnormal vascularity. The left internal jugular vein is patent. Lymph nodes: There is a oval 3 x 6 mm hypodense nodule with through-transmission possibly a cyst or cystic lymph node. There are few normal-sized lymph nodes in the area with maintained fatty nahid. IMPRESSION: 1. There is a 3 x 6 mm cystic structure in the general area of interest. Appearance benign. 2. There is no abscess. 3. Normal appearance of the left parotid gland. ACT 112: N/A Electronically signed by Linda Barba 04-27-2025 7:08 PM
[2025-04-27] MEDS: DEXTROSE 50% 50 ML SYRINGE IV PRN (22:40)
[2025-04-28] MEDS: POTASSIUM CHLORIDE 40 MEQ in SODIUM CHLORIDE 0.9% 1,000 ML IV SCH (02:12)
[2025-04-28 05:53] LABS: Hematocrit (blood only) 23.7 % (37.0-47.0); Hemoglobin 7.9 g/dl (12.0-16.0); Immature Granulocytes # (auto) 0.10 K/uL (0.01-0.20); Immature Granulocytes % (auto) 0.7 %; Mean Corpuscular Hemoglobin 26.8 pg (25.0-34.0); Mean Corpuscular Volume 80.3 fL (80.0-100.0); Platelet Count 328 K/uL (130-400); RDW Standard Deviation 41.5 fL (36.4-46.3); Red Blood Count 2.95 M/uL (4.20-5.40); White Blood Count 13.69 K/ul (4.8-10.8)
[2025-04-28 06:11] LABS: Alanine Aminotransferase 4.0 U/L (7-52); Albumin Globulin Ratio 1.1 (0.9-2); Albumin Level 2.7 gm/dl (3.4-5.0); Alkaline Phosphatase 50.0 U/L (34-104); Anion Gap 8.0 (3-11); Bilirubin,Total 0.6 mg/dl (0.2-1.0); Blood Urea Nitrogen 2.0 mg/dl (6-23); Calcium 7.7 mg/dl (8.6-10.3); Carbon Dioxide 21.0 mmol/L (21-32); Chloride 109.0 mmol/L (98-107); Creatinine Clr Calc Pharmacy 116.1 ml/min; Globulin 2.5 gm/dl (2.5-4.0); Glucose 111.0 mg/dl (70-99(Fasting)); Magnesium 1.5 mg/dl (1.7-2.4); Potassium 3.5 mmol/L (3.5-5.1); Sodium 138.0 mmol/L (136-145); Total Protein 5.2 gm/dl (6.0-8.3)
[2025-04-28 06:19] LABS: RBC Morphology Unremarkable
[2025-04-28] MEDS ORDERED: SODIUM PHOSPHATE 3 MMOL/1 ML INFUSION IV STA (06:59)
[2025-04-28] MEDS: MAGNESIUM SULFATE / D5W 1 GM/100 ML BAG IV SCH (07:29)
[2025-04-28] MEDS: SODIUM PHOSPHATE 21 MMOL in SODIUM CHLORIDE 0.9% 500 ML IV ONE (07:29)
[2025-04-28] MEDS ORDERED: Nursing to Pharmacy Communication SCH (08:45)
--- NOTE | 2025-04-28 09:05 | Surgery Progress Note ---
Date of Service April 28, 2025 Assessment & Plan (1) History of colon resection: Plan: POD 4 awaiting bowel fx will start clears continue to increase activity. monitor wbc/temp would cont antibiotics now secondary to scope of surgery and bladder involvement/hernandez no evidence of bleeding will initiate lovenox Admission and Anticipated Discharge Date Admission Date: April 24, 2025 Subjective pt seen. overall doing ok. feels a possible impending bm. no bowel fx yet. denies nausea. c/o of left ear discomfort. Physical Exam Physical Exam: alert. nad incision looks great. abdomen non-distended. JOCELYN scant/serous Results & Data Vital Signs (Past 12 Hours) Vital Signs Temp Pulse Resp BP BP Pulse Ox O2 Del Method 04/28/25 07:22 Room Air 04/28/25 07:02 37.0 C 84 16 155/79 H 94 Room Air 04/27/25 22:30 36.6 C 90 18 171/77 H 94 Room Air PG Care Time/CCT Total # of Minutes Spent Total Time Spent with Patient: Total time spent is greater than 50% in coordination of care (as documented) at patient's floor/unit and/or counseling patient: Coding Level of Care Code 42222 Post Operative Follow-Up Diagnoses History of colon resection Z90.49
[2025-04-28] MEDS: CETIRIZINE HCL 10 MG TABLET PO ONE (09:16)
[2025-04-28] MEDS: INSULIN ASPART PER UNIT CHARGE SC SCH (09:20)
--- NOTE | 2025-04-28 09:58 | Hospitalist Progress Note ---
Date of Service April 28, 2025 Assessment & Plan (1) T2DM (type 2 diabetes mellitus): (2) Stricture of sigmoid colon: (3) HLD (hyperlipidemia): (4) Rheumatoid arthritis: (5) Polyarthralgia: Plan Ashlee is a 74-year-old female with a past medical history including diabetes mellitus type II, JILLIAN, and GERD without esophagitis. She underwent laparoscopic surgery converted to open low anterior resection of sigmoid stricture, and cystoscopy ureteral catheterization and repair of bladder laceration on 04/24/2025. Primary team was consulted on medical optimization. Patient seems medically optimized. Need of low flow oxygen likely 2/2 to long exposure of anesthetic agent and prolonged intubation during procedure as well as some fluid on her lungs, diuresed on 04/26. On night of 04/27 she was feverish and vitals recorded 37.9 temp and HR 119. This morning vitals are reassuring. S/P open anterior resection of sigmoid stricture: - Pain optimized. - Developed mild fever. - DVT prophylaxis: Lovenox , stockings on. Labs:K :2.8, Hb 8,.3 today - Back on Room air today - 2/2 to long exposure of anesthetic agent and prolonged intubation during procedure as well as some fluid on her lungs Plan: Repeat XR chest looks reassuring Continue Incentive Spirometry. Adequate pain control. O2 as needed. #Hypokalemia - Improved. #Anemia - Hb: 8.3 ---< 9.4----<12 ( pre op) Likely operative blood loss HD stable Transfuse of Hb < 7 #T2DM - Pt had an episode of hypoglycemia last night. - BS range below 180 should be fine for perioperative period, to reduce risk of poor healing. - Last HgbA1C 04/11: 7.5 - POC glucose from today (04/25): 244 - Hold home medications Farxiga and metformin - Hold Lantus #GERD - IV Protonix 40mg daily- can change to oral once PO. - Switch to home oral nexium upon discharge #Polyarthralgias - Monitor symptoms and address as needed #HLD - Resume red yeast rice upon discharge Dispo: Surgery primary, anticipate home once ready for DC. DVT prophylaxis: Lovenox. Admission and Anticipated Discharge Date Admission Date: April 24, 2025 Supervising Physician Co-Signing Physician Notes I personally examined the patient and verified all sanchez points of history and exam, discussed case, and agree with decision making with Dr Hernandez Having some pain. Did eat Jell-O and had a bowel movement earlier. Vitals noted, in general she appears fatigued but otherwise in no distress. Abdomen is soft mildly distended mild to moderate diffuse tenderness but no guarding r ebound or rigidity. Skin without rashes pallor or icterus. Neuro without focal deficits. Abdominal painnothing ominous on history or physical examwas moving a lot yesterday, did eat some and had bowel movement todaylikely all part of her normal postoperative course. Additional Dilaudid ordered. Hypokalemia - follow and replace as needed Anemia - Continue to follow Leukocytosis - improved, trend CBC daily DMII - glycemic consult othewrise as above Subjective Pt complains of some pain in her incision this AM. She had an episode of low blood sugar last night and got some glucose. This morning blood sugar is ok. She was rather concerned about left ear infection that she had 3 weeks ago and endorsed that she had some fluid draining into her mouth. Review of Systems Review of Systems: per HPI Physical Exam Physical Exam: Constitutional: Well appearing, No acute distress but in pain, Pale looking. HEENT: Atraumatic, Normocephalic, No conjunctival injection CVS: S1 S2 no murmur Respiratory: BL decreased air entry,No obvious increased work of breathing. Occasional soft crepitations on left lung. GI: Midline anterior abdominal wall likely suture knot, Mildly distended abdomen, No rebound tenderness. S noted on my exam. Ear exam: Effusion behind left TM, right TM look normal. MSK: No gross deformities noted Skin: Warm, Dry, No rashes Neuro: Alert, Oriented to TPP, No Focal deficit Psych: Mood and Affect congruent, Cooperative on exam Results & Data Results & Data Vital Signs (Past 12 Hours) Vital Signs Temp Pulse Resp BP BP Pulse Ox O2 Del Method 04/28/25 07:22 Room Air 04/28/25 07:02 37.0 C 84 16 155/79 H 94 Room Air 04/27/25 22:30 36.6 C 90 18 171/77 H 94 Room Air
[2025-04-28] MEDS: ACETAMINOPHEN 325 MG TAB PO PRN (16:01)
[2025-04-28] MEDS: HYDROmorphone INJ 0.5 MG/0.5 ML SYR IV STA (16:30)
--- NOTE | 2025-04-28 17:18 | Billing Data ---
Date of Service April 28, 2025 Coding Level of Care Code 68416 SUB INP/OBS CARE
--- NOTE | 2025-04-29 07:21 | Hospitalist Progress Note ---
Date of Service April 29, 2025 Assessment & Plan (1) T2DM (type 2 diabetes mellitus): (2) Stricture of sigmoid colon: (3) HLD (hyperlipidemia): (4) Rheumatoid arthritis: (5) Polyarthralgia: Plan Ashlee is a 74-year-old female with a past medical history including diabetes m ellitus type II, JILLIAN, and GERD without esophagitis. She underwent laparoscopic surgery converted to open low anterior resection of sigmoid stricture, and cystoscopy ureteral catheterization and repair of bladder laceration on 04/24/2025. Primary team was consulted on medical optimization. Patient seems medically optimized. Off O2, vitals stable. S/P open anterior resection of sigmoid stricture: 5th POD. - Pain optimized - DVT prophylaxis: Lovenox , stockings on. - Back on Room air, was o O2 2L initially post op - 2/2 to long exposure of anesthetic agent and prolonged intubation during procedure as well as some fluid on her lungs Plan:Repeat XR chest looks reassuring Continue Incentive Spirometry. Adequate pain control. O2 as needed. #Hypokalemia - K: 3.0-- replaced. Anticipate improvement with PO. #Anemia: Stable #T2DM - BS range below 180 should be fine for perioperative period, to reduce risk of poor healing. - Last HgbA1C 04/11: 7.5 - Hold home medications Farxiga and metformin - Hold Lantus for now. can resume home med on DC. #GERD - Protonix daily. - Switch to home oral nexium upon discharge #Polyarthralgias - Monitor symptoms and address as needed #HLD - Resume red yeast rice upon discharge RECOMMENDATIONS PER PRIMARY TEAM: Patient is medically optimized as above. Continue follow outpatient. Pt's Primary is Dr. Sandy Seaman. We would recommend following with her in 2 weeks for Diabetes follow up. Given the fact patient was hypoglycemic with low dose of Lantus, I would recommend more liberal blood sugar goal. Any number < 180 mg/dl should be ok for reducing risk of post-operative infections. Primary team will sign off from her care, thank you for participating us in her care. Admission and Anticipated Discharge Date Admission Date: April 24, 2025 Supervising Physician Co-Signing Physician Notes I personally examined the patient and verified all sanchez points of history and exam, discussed case, and agree with decision making with Dr Hernandez More bowel movements, tolerating liquid diet. Moving around better, pain under better control.. Vitals noted, in general she appears fatigued but otherwise in no distress. Abdomen is soft mildly distended mild to moderate diffuse tenderness but no guarding rebound or rigidity. Skin without rashes pallor or icterus. Neuro without focal deficits. Status post sigmoid resectiondoing better. Diet advancing. Surgery managing. Hypokalemia - follow and replace as needed Anemia - Overall stable Leukocytosis - improved DMII - glycemic consult Otherwise as above, hospitalist team will sign off at this time. Subjective Ashlee was having breakfast in table, with zello and soup. Still feeling weak, little nausea but no vomiting. She has bowel movement yesterday and probably this morning. Blood sugars stable, no dizziness, lightheadedness, chest pain or fever. Review of Systems Review of Systems: per HPI Physical Exam Physical Exam: Constitutional: Well appearing, No acute distress but in pain, Pale looking. HEENT: Atraumatic, Normocephalic, No conjunctival injection CVS: S1 S2 no murmur Respiratory: BL decreased air entry ,No obvious increased work of breathing. GI: Midline anterior abdominal wall likely suture knot, Mildly distended abdomen, No rebound tenderness. S noted on my exam. MSK: No gross deformities noted Skin: Warm, Dry, No rashes Neuro: Alert, Oriented to TPP, No Focal deficit Psych: Mood and Affect congruent, Cooperative on exam Results & Data Results & Data Vital Signs (Past 12 Hours) Vital Signs Temp Pulse Resp BP Pulse Ox O2 Del Method 04/28/25 23:38 36.4 C L 85 16 157/68 H 94 Room Air 04/28/25 20:35 Room Air Resident Activity Tracking Resident Involvement: Resident Care Provided Care Provided: Adult Hospital Medicine
[2025-04-29 07:29] LABS: Hematocrit (blood only) 25.0 % (37.0-47.0); Hemoglobin 8.4 g/dl (12.0-16.0); Immature Granulocytes # (auto) 0.09 K/uL (0.01-0.20); Immature Granulocytes % (auto) 0.9 %; Mean Corpuscular Hemoglobin 26.7 pg (25.0-34.0); Mean Corpuscular Volume 79.4 fL (80.0-100.0); Platelet Count 366 K/uL (130-400); RDW Standard Deviation 40.3 fL (36.4-46.3); Red Blood Count 3.15 M/uL (4.20-5.40); White Blood Count 10.14 K/ul (4.8-10.8)
[2025-04-29 07:58] LABS: Alanine Aminotransferase 4 U/L (7-52); Albumin Globulin Ratio 0.9 (0.9-2); Albumin Level 2.7 gm/dl (3.4-5.0); Alkaline Phosphatase 52 U/L (34-104); Anion Gap 9 (3-11); Bilirubin,Total 0.5 mg/dl (0.2-1.0); Blood Urea Nitrogen < 2 mg/dl (6-23); Calcium 8.1 mg/dl (8.6-10.3); Carbon Dioxide 26 mmol/L (21-32); Chloride 106 mmol/L (98-107); Creatinine Clr Calc Pharmacy 122.1 ml/min; Globulin 2.9 gm/dl (2.5-4.0); Glucose 120 mg/dl (70-99(Fasting)); Magnesium 1.7 mg/dl (1.7-2.4); Potassium 3.0 mmol/L (3.5-5.1); Sodium 141 mmol/L (136-145); Total Protein 5.6 gm/dl (6.0-8.3)
[2025-04-29] MEDS ORDERED: POTASSIUM PHOS 3 MMOL/1 ML INFUSION IV STA (08:52)
--- NOTE | 2025-04-29 09:28 | Surgery Progress Note ---
Date of Service April 29, 2025 Assessment & Plan (1) History of colon resection: Plan: POD 5 WBC 10 (13), Hbg 8.4, K 3 (repletion ordered), Cr 0.3. Vitals stable, no fevers On clears, mild nausea but could be because the food is not appeasing to her Will trial fulls and see how she fairs, encouraged her to take it easy if signs of nausea/vomiting She is passing gas, think she had a BM (if so was incontinent in bed) Keep hernandez in for at least 2 weeks Continue to increase activity, PT/OT ordered doing ok. awaiting full return of bowel fx. will increase to full liquids. increase actvity. Admission and Anticipated Discharge Date Admission Date: April 24, 2025 Subjective Patient feeling tired and weak. Some nausea yesterday and into this AM but no emesis. The clears are not appetizing to her. Passing gas. Thinks she had a BM but is lying in bed. Physical Exam Physical Exam: awake/alert, no distress Gastrointestinal (Abdomen): Percussion/Palpation: + abdomen tender (expected post op discomfort) and abdomen soft JOCELYN drain serosang. Results & Data Vital Signs (Past 12 Hours) Vital Signs Temp Pulse Pulse Resp BP BP Pulse Ox 04/29/25 09:05 98.2 F 72 16 166/77 H 94 04/28/25 23:38 97.5 F L 85 16 157/68 H 94 O2 Del Method 04/29/25 09:05 Room Air 04/28/25 23:38 Room Air PG Care Time/CCT Total # of Minutes Spent Total Time Spent with Patient: Total time spent is greater than 50% in coordination of care (as documented) at patient's floor/unit and/or counseling patient: Coding Level of Care Code 00957 Post Operative Follow-Up Diagnoses History of colon resection Z90.49
[2025-04-29] MEDS: POTASSIUM PHOSPHATE 15 MMOL in SODIUM CHLORIDE 0.9% 250 ML IV ONE (10:14)
[2025-04-29] MEDS: FLUTICASONE PROPIONATE NA SPR 16 GM BTL SCH (12:19)
--- NOTE | 2025-04-29 19:38 | Billing Data ---
Date of Service April 29, 2025 Coding Level of Care Code 15910 SUB INP/OBS CARE
[2025-04-29] MEDS: CETIRIZINE HCL 10 MG TABLET PO SCH (21:27)
[2025-04-30 06:36] LABS: Hematocrit (blood only) 25.6 % (37.0-47.0); Hemoglobin 8.4 g/dl (12.0-16.0); Immature Granulocytes # (auto) 0.15 K/uL (0.01-0.20); Immature Granulocytes % (auto) 1.4 %; Mean Corpuscular Hemoglobin 25.8 pg (25.0-34.0); Mean Corpuscular Volume 78.8 fL (80.0-100.0); Platelet Count 390 K/uL (130-400); RDW Standard Deviation 39.8 fL (36.4-46.3); Red Blood Count 3.25 M/uL (4.20-5.40); White Blood Count 10.66 K/ul (4.8-10.8)
[2025-04-30 06:51] LABS: Alanine Aminotransferase 4.0 U/L (7-52); Albumin Globulin Ratio 0.9 (0.9-2); Albumin Level 2.8 gm/dl (3.4-5.0); Alkaline Phosphatase 52.0 U/L (34-104); Anion Gap 11.0 (3-11); Bilirubin,Total 0.5 mg/dl (0.2-1.0); Blood Urea Nitrogen 2.0 mg/dl (6-23); Calcium 8.5 mg/dl (8.6-10.3); Carbon Dioxide 26.0 mmol/L (21-32); Chloride 103.0 mmol/L (98-107); Creatinine Clr Calc Pharmacy 113.3 ml/min; Globulin 3.0 gm/dl (2.5-4.0); Glucose 143.0 mg/dl (70-99(Fasting)); Magnesium 1.5 mg/dl (1.7-2.4); Potassium 2.7 mmol/L (3.5-5.1); Sodium 140.0 mmol/L (136-145); Total Protein 5.8 gm/dl (6.0-8.3)
[2025-04-30] MEDS: POTASSIUM CHLORIDE CRTAB 20 MEQ TABCR PO STA (07:48)
--- NOTE | 2025-04-30 08:38 | Surgery Progress Note ---
Date of Service April 30, 2025 Assessment & Plan (1) History of colon resection: Plan: POD#6 laparoscopic converted to open left sigmoid colon resection and repair of bladder lac WBC 10.6, Hbg 8.4, K 2.7 (will replete). Vital signs stable, no fevers No nausea this AM, tolerating fulls fine She is having + bowel function, therefore will advance to low fiber today Keep hernandez in for at least 2 weeks; will need to follow up with urology for removal in their clinic Continue to increase activity, PT/OT ordered Possible discharge tomorrow pending progress, will remove JOCELYN drain prior to d/c (2) Acute blood loss anemia: Admission and Anticipated Discharge Date Admission Date: April 24, 2025 Subjective Patient feeling okay this AM. Pain present but tolerable. Has some complaints with food regarding sugar/salt of products, but tolerating them without any nausea/vomiting. Had an unpleasant interaction with nursing aid this AM, but very happy with her care overnight. She is having loose BMs, 2 this AM. Currently sitting on bedside commode while working on her bfast. Has been OOB walking. Physical Exam Physical Exam: awake/alert, no distress Respiratory: normal respiratory effort Gastrointestinal (Abdomen): JOCELYN drain serous fluid. Will check midline incision later today when in bed Results & Data Vital Signs (Past 12 Hours) Vital Signs Temp Pulse Pulse Resp BP BP Pulse Ox 04/30/25 07:59 98.2 F 77 18 158/75 H 97 04/29/25 22:19 98.1 F 83 18 172/76 H 97 04/29/25 21:27 O2 Del Method 04/30/25 07:59 Room Air 04/29/25 22:19 Room Air 04/29/25 21:27 Room Air PG Care Time/CCT Total # of Minutes Spent Total Time Spent with Patient: Total time spent is greater than 50% in coordination of care (as documented) at patient's floor/unit and/or counseling patient: Coding Level of Care Code 44839 Post Operative Follow-Up Diagnoses History of colon resection Z90.49 Acute blood loss anemia D62
[2025-05-01 06:10] LABS: Hematocrit (blood only) 24.3 % (37.0-47.0); Hemoglobin 8.0 g/dl (12.0-16.0); Immature Granulocytes # (auto) 0.11 K/uL (0.01-0.20); Immature Granulocytes % (auto) 1.0 %; Mean Corpuscular Hemoglobin 26.4 pg (25.0-34.0); Mean Corpuscular Volume 80.2 fL (80.0-100.0); Platelet Count 410 K/uL (130-400); RDW Standard Deviation 41.1 fL (36.4-46.3); Red Blood Count 3.03 M/uL (4.20-5.40); White Blood Count 10.65 K/ul (4.8-10.8)
[2025-05-01 06:32] LABS: Alanine Aminotransferase 4.0 U/L (7-52); Albumin Globulin Ratio 1.0 (0.9-2); Albumin Level 2.8 gm/dl (3.4-5.0); Alkaline Phosphatase 52.0 U/L (34-104); Anion Gap 7.0 (3-11); Bilirubin,Total 0.4 mg/dl (0.2-1.0); Blood Urea Nitrogen 4.0 mg/dl (6-23); Calcium 8.4 mg/dl (8.6-10.3); Carbon Dioxide 29.0 mmol/L (21-32); Chloride 107.0 mmol/L (98-107); Creatinine Clr Calc Pharmacy 83.5 ml/min; Globulin 2.9 gm/dl (2.5-4.0); Glucose 120.0 mg/dl (70-99(Fasting)); Magnesium 1.5 mg/dl (1.7-2.4); Potassium 3.2 mmol/L (3.5-5.1); Sodium 143.0 mmol/L (136-145); Total Protein 5.7 gm/dl (6.0-8.3)
--- NOTE | 2025-05-01 07:50 | Surgery Progress Note ---
Date of Service May 01, 2025 Assessment & Plan (1) History of colon resection: Plan: Doing well. Will see how the diet goes today. Will need to discuss with urology regarding antibiotics/Vazquez catheter removal etc. Patient making arrangements for help at home She wants to be discharged tomorrow which I think is reasonable. Will remove JOCELYN drain Admission and Anticipated Discharge Date Admission Date: April 24, 2025 Subjective Patient seen. Feeling pretty well. Tolerating a diet at this point. Bowels functioning. Pain reasonably controlled Physical Exam Physical Exam: Alert no acute distress Abdomen soft nontender. Incision looks good. JOCELYN drain with scant amount of serous drainage. Results & Data Vital Signs (Past 12 Hours) Vital Signs Temp Pulse Resp BP Pulse Ox O2 Del Method 05/01/25 07:15 37 C 82 14 143/72 H 94 Room Air 04/30/25 23:06 37.1 C 83 16 138/66 97 Room Air 04/30/25 21:24 Room Air PG Care Time/CCT Total # of Minutes Spent Total Time Spent with Patient: Total time spent is greater than 50% in coordination of care (as documented) at patient's floor/unit and/or counseling patient: Coding Level of Care Code 18694 Post Operative Follow-Up Diagnoses History of colon resection Z90.49
[2025-05-01] MEDS: POTASSIUM CHLORIDE CRTAB 20 MEQ TABCR PO STA (08:19)
[2025-05-01 23:26] VITALS: O2SAT 95
[2025-05-02 07:57] VITALS: RESP 16; TEMP 98.2
--- NOTE | 2025-05-02 09:31 | Surgery Progress Note ---
Date of Service May 02, 2025 Assessment & Plan (1) History of colon resection: Plan: POD#8 laparoscopic converted to open left sigmoid colon resection and repair of bladder lac Vitals stable, no fevers Tolerating low fiber diet. pain controlled. no n/v. + bowel function JOCELYN drain removed. Midline incision with delma, continue daily dressing if any drainage Keep hernandez in for at least 2 weeks; will need to follow up with urology for removal in their clinic Plan on discharge to home today Admission and Anticipated Discharge Date Admission Date: April 24, 2025 Subjective Patient feeling overall stable and well. Pain tolerable. She is tolerating a diet, no n/v. She is having+ bowel function. Physical Exam Physical Exam: awake/alert, no distress Respiratory: normal respiratory effort Gastrointestinal (Abdomen): Inspection/Auscultation: + abdominal surgical incision (midline delma, small amount of drainage on dressing.); abdomen not distended Percussion/Palpation: + abdomen tender (mild miguel incisional discomfort) and abdomen soft mild erythema around incision appears 2/2 to staple reaction Results & Data Vital Signs (Past 12 Hours) Vital Signs Temp Pulse Pulse Resp BP Pulse Ox O2 Del Method 05/02/25 07:55 98.2 F 72 16 148/79 H 95 Room Air 05/01/25 23:25 99.0 F 84 18 125/67 95 Room Air 05/01/25 21:45 Room Air PG Care Time/CCT Total # of Minutes Spent Total Time Spent with Patient: Total time spent is greater than 50% in coordination of care (as documented) at patient's floor/unit and/or counseling patient: Coding Level of Care Code 67523 Post Operative Follow-Up Diagnoses History of colon resection Z90.49
[2025-05-02 10:56] VITALS: BP 158/75; PULSE 84
== END 2025-05-02 14:17 | disposition home health service (06) | DRG 330 ==
LOC: ASU 10:58 → 3E 13:36